=== PATIENT | male | born 1960 | race Caucasian/White ===

== ENCOUNTER 2023-04-16 14:02 | Emergency (ER) | payer OTHER ==
[2023-04-16] MEDS ORDERED: BACITRACIN ZINC OINT 1 PACKET TOP STA (15:08)
[2023-04-16] MEDS ORDERED: lidocaine 1% 20 ML MDV SUBQ ONE (15:08)
--- NOTE | 2023-04-16 15:46 | ED Physician Documentation ---
History of Present Illness - Stated complaint Stated Complaint: RT FINGER LAC - Chief complaint Chief Complaint: Laceration - Additonal information Additional information: 62-year-old male presents emergency department for evaluation of a right ring finger laceration sustained when the fat pad of the finger was crushed between tween 2 heavy rocks while building a wall. Tetanus is up-to-date. He is ambidextrous. Review of Systems Constitutional: denies: Fever, Chills Throat: reports: Reviewed and negative Cardiac: reports: Reviewed and negative Respiratory: reports: Reviewed and negative Skin: reports: Laceration (s) PD PAST MEDICAL HISTORY - Past Medical History Past Medical History: No - Present Medications Home Medications: Ambulatory Orders Medication Instructions Recorded Confirmed No Known Home Medications 04/16/23 04/16/23 - Allergies Allergies/Adverse Reactions: Allergies Allergy/AdvReac Type Severity Reaction Status Date / Time No Known Drug Allergies Allergy Verified 04/16/23 14:09 - Social History Does the pt smoke?: No Smoking Status: Never smoker PD ED PE NORMAL - General General: Alert and oriented X 3, No acute distress, Well developed/nourished - Extremities Extremities: Other (Right ring finger with a macerated "V" shaped laceration distal fat pad total length 3.5 cm. Preserved flexion extension at DIP joint. Otherwise neurovascularly intact.) Results - Vitals Vitals: Vital Signs - 24 hr 04/16/23 14:10 Temperature 36.5 C Heart Rate 69 Respiratory 16 Rate Blood Pressure 145/79 H O2 Saturation 97 Oxygen O2 Source Room air Procedures - Laceration (location) right ring finger Length in cm: 3.5 Wound type: Irregular, Into subcut fat, Clean Neurovascular status: Sensory intact, Motor intact Tendon involvement: Tendon intact Anesthesia: Lidocaine 1% Wound preparation: Chlorhexadine, Irrigated copiously NS Skin layer closure: Nylon, Interrupted, Sutures - enter # (7) Other: Tetanus UTD PD Medical Decision Making - ED course Complexity details: d/w patient ED course: 62-year-old male here with a V shape macerated laceration to the fat pad of his right ring finger. He has preserved flexion extension at DIP joint. Neurovascular intact. No evidence of tendon injury. Patient declined x-ray imaging to evaluate for fracture. Wound was closed with 7 interrupted four-point 0 sutures. Tetanus is up-to-date. Discharge home with usual wound care and return precautions discussed. Departure - Departure Disposition: 01 Home, Self Care Clinical Impression: Finger laceration Qualifiers: Encounter type: initial encounter Finger: ring finger Damage to nail status: without damage Foreign body presence: without foreign body Laterality: right Qualified Code(s): S61.214A - Laceration without foreign body of right ring finger without damage to nail, initial encounter Condition: Stable Record reviewed to determine appropriate education?: Yes Instructions: ED Laceration All Comments: Your suture(s) should be removed in 10 days. In 24 hours you may remove the dressing wash gently with warm soap and water, apply any antibiotic ointment and a simple bandage. Your tetanus is up-to-date. Please attempt to keep your wound clean and dry. Do not submerge it in dirty dishwater or bath water. Return to the emergency department if you have any concerns of infection such as redness, fevers milky drainage increased pain.
[2023-04-16 16:06] VITALS: BP 134/70; O2SAT 96
== END 2023-04-16 15:59 | disposition home or self-care (01) ==
LOC: ED 14:02
DX: S61.214A Laceration without foreign body of right ring finger without damage to nail, initial encounter (principal); W23.0XXA Caught, crushed, jammed, or pinched between moving objects, initial encounter; Y93.H3 Activity, building and construction
CPT/HCPCS: 12002; 99282; A9270